=== PATIENT | female | born 1940 | race Caucasian/White ===

== ENCOUNTER 2022-06-16 00:31 | Inpatient (IN) | payer BC ==
[~2022-06-16] VITALS: Ht 167.6 cm; Wt 74.8 kg
[2022-06-16] MEDS ORDERED: IBUPROFEN 400 MG TABLET PO ONE (01:00)
[2022-06-16] MEDS ORDERED: IBUPROFEN 400 MG TABLET ONE (01:16)
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
--- NOTE | 2022-06-16 01:34 | NUR ---
PT BEING TRANSPORTED TO [facility]IA [facility]
[2022-06-16 05:24] LABS: BASOPHILS % (AUTO) 0.2 % (0.0-2.0); EOSINOPHILS % (AUTO) 0.2 % (0.0-6.0); HEMATOCRIT 39 % (33-45); HEMOGLOBIN 13.4 g/dL (11.5-14.8); LYMPHOCYTES # (AUTO) 1.2 K/uL (0.8-4.8); LYMPHOCYTES % (AUTO) 15.1 % (20.0-44.0); MEAN CORPUSCULAR HGB CONC 34 g/dl (31.0-36.0); MEAN CORPUSCULAR VOLUME 83 fL (82-100); MONOCYTES # (AUTO) 0.5 K/uL (0.1-1.30); NEUTROPHILS # (AUTO) 6.4 K/uL (1.8-8.9); NEUTROPHILS % (AUTO) 78.5 % (43.0-81.0); PLATELET COUNT (AUTO) 178 K/uL (150-450); RED BLOOD CELL COUNT(AUTO) 4.71 MIL/uL (4.0-5.2); WHITE BLOOD COUNT (AUTO) 8.1 K/uL (4.3-11.0)
--- NOTE | 2022-06-16 05:25 | NUR ---
DR NAILS ON THE PHONE WITH YARELIS COOPER NP
[2022-06-16 05:34] LABS: CARBON DIOXIDE 27 mmol/L (21-32); CHLORIDE 104 mmol/L (98-107); CREATININE 0.8 mg/dL (0.6-1.3); GLUCOSE 117 mg/dL (74-106); POTASSIUM 3.7 mmol/L (3.5-5.1); SODIUM SERUM 138 mmol/L (136-145); UREA NITROGEN, BLOOD 16 mg/dL (7-18)
--- NOTE | 2022-06-16 05:39 | NUR ---
20G IV ESTABLISHED AT . BLOOD DRAWN AND SENT TO LAB
[2022-06-16 05:40] LABS: ALANINE AMINOTRANSFERASE 25 U/L (12-78); ALBUMIN 3.7 g/dL (3.4-5.0); ALKALINE PHOSPHATASE 79 U/L (46-116); ASPARTATE AMINOTRANSFERASE 24 U/L (15-37); TOTAL PROTEIN, SERUM 7.1 g/dL (6.4-8.2)
--- NOTE | 2022-06-16 05:40 | NUR ---
ENOC COLLECTED AND SENT TO LAB
[2022-06-16] MEDS ORDERED: MAGNESIUM HYDROXIDE 30 ML UDC PO PRN (06:00)
[2022-06-16] MEDS ORDERED: Z GUARD REMEDY 4 OZ OINT TP PRN (06:00)
[2022-06-16] MEDS ORDERED: ONDANSETRON HCL/PF 4 MG/2 ML VIAL IVP PRN (06:00)
[2022-06-16] MEDS ORDERED: ACETAMINOPHEN 325 MG TABLET PO PRN (06:00)
--- NOTE | 2022-06-16 06:43 | NUR ---
PT SLEEPING COMFORTABLY IN BED REMAINS ON PULSE OX AND MONITOR. CALL LIGHT WITHIN REACH.
--- NOTE | 2022-06-16 07:40 | NUR ---
GOT BED 324-1
--- NOTE | 2022-06-16 07:55 | NUR ---
REPORT GIVEN TO SOPHIA FOR MODESTO
[2022-06-16] MEDS: PANTOPRAZOLE 40 MG TABLET.DR PO SCH (09:21)
[2022-06-16] MEDS: MORPHINE SULFATE INJ 2 MG/ML DISP.SYRIN IV PRN ×2 (09:22→10:26)
[2022-06-16 09:25] VITALS: BP 146/82
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
[2022-06-16] MEDS ORDERED: ASPI-1169 PO (09:29)
[2022-06-16] MEDS ORDERED: ATOR10TA PO (09:29)
[2022-06-16] MEDS ORDERED: LISI-768 PO (09:29)
[2022-06-16] MEDS ORDERED: HYDROCODONE/APAP 10/325MG TABLET PO PRN (11:00)
[2022-06-16 16:00] VITALS: BP 120/70
[2022-06-16] MEDS: ATORVASTATIN 10 MG TABLET PO SCH (18:19)
--- NOTE | 2022-06-16 19:34 | NUR ---
RN Closing Note Pt AOx4, able to express her own concerns. Patient complained about food quality and pillows. Provided as much assistance with comfort as possible. Made pt aware of POC, states she is not sure if she wants to continue with imaging test since she does not want to be exposed to radiation. Administered medications as ordered. Patient remained stable and safe throughout shift, provided care as needed and medications as ordered. All safety precautions taken throughout shift, call light and table within reach, bed at lowest position.
--- NOTE | 2022-06-16 19:40 | NUR ---
MS RN OPENING NOTE RECEIVED PT RESTING IN BED, VERBALLY RESPONSIVE. A/O X4 AND ABLE TO MAKE NEEDS KNOWN. PT STABLE ON ROOM AIR. NO SOB OR S/S OF RESPIRATORY DISTRESS. BREATHING EVEN AND UNLABORED. IV ACCESS R HAND 20 GAUGE, INTACT AND PATENT. SAFETY PRECAUTIONS IN PLACE. BED IN LOWEST LOCKED POSITION, HOB ELEVATED, SIDE RAILS UP X2, AND CALL LIGHT AND TABLE WITHIN REACH. ALL NEEDS MET AT THIS TIME.
[2022-06-16 20:00] VITALS: BP 154/84
[2022-06-16] MEDS: TEMAZEPAM 15 MG CAPSULE PO PRN (23:18)
--- NOTE | 2022-06-16 23:18 | NUR ---
RN NOTE PT COMPLAINED OF INSOMNIA. MANAGER VAN COOPER AWARE AND NEW ORDERS NOTED AND CARRIED OUT. ADMINISTERED RESTORIL 15 MG FOR INSOMNIA ORDERED. MADE COMFORTABLE IN BED. ALL NEEDS MET AT THIS TIME.
[2022-06-17 06:52] LABS: BILIRUBIN,URINE NEGATIVE (NEGATIVE); COLOR,URINE YELLOW (YELLOW); LEUKOCYTE ESTERASE ,URINE SMALL (NEGATIVE); NITRITE, URINE POSITIVE (NEGATIVE); PROTEIN,URINE NEGATIVE (NEGATIVE); UGLUCOSE NEGATIVE (NEGATIVE); UROBILINOGEN,URINE 0.2 EU/dL (0.2)
[2022-06-17 06:55] LABS: BACTERIA,URINE Many /HPF (None Seen); SQUAMOUS EPITHELIAL CELL,UR Few /HPF (None Seen); WBC,URINE 21-50 /HPF (0-3)
[2022-06-17 07:05] LABS: BASOPHILS % (AUTO) 0.3 % (0.0-2.0); EOSINOPHILS % (AUTO) 1.3 % (0.0-6.0); HEMATOCRIT 38 % (33-45); HEMOGLOBIN 13.2 g/dL (11.5-14.8); LYMPHOCYTES # (AUTO) 1.2 K/uL (0.8-4.8); LYMPHOCYTES % (AUTO) 16.8 % (20.0-44.0); MEAN CORPUSCULAR HGB CONC 34 g/dl (31.0-36.0); MEAN CORPUSCULAR VOLUME 84 fL (82-100); MONOCYTES # (AUTO) 0.7 K/uL (0.1-1.30); MONOCYTES % (AUTO) 9.2 % (2.0-12.0); NEUTROPHILS # (AUTO) 5.3 K/uL (1.8-8.9); NEUTROPHILS % (AUTO) 72.4 % (43.0-81.0); PLATELET COUNT (AUTO) 161 K/uL (150-450); RED BLOOD CELL COUNT(AUTO) 4.59 MIL/uL (4.0-5.2); WHITE BLOOD COUNT (AUTO) 7.3 K/uL (4.3-11.0)
[2022-06-17 07:28] LABS: CREATININE 0.7 mg/dL (0.6-1.3); PHOSPHORUS 3.3 mg/dL (2.5-4.9); POTASSIUM 3.6 mmol/L (3.5-5.1)
[2022-06-17] MEDS: PANTOPRAZOLE 40 MG TABLET.DR PO SCH (08:17)
[2022-06-17] MEDS: LISINOPRIL (5MG) 5 MG TABLET PO SCH (08:18)
--- NOTE | 2022-06-17 08:35 | NUR ---
pt. refused CT Scan of Pelvis. RN aware.
[2022-06-17 08:54] VITALS: BP 130/86
[2022-06-17] MEDS ORDERED: ACET325T53 PO (14:16)
[2022-06-17] MEDS ORDERED: HYDR-3980 PO (14:16)
[2022-06-17 16:21] VITALS: BP 116/54
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
[2022-06-17] MEDS: ATORVASTATIN 10 MG TABLET PO SCH (18:33)
--- NOTE | 2022-06-17 19:29 | NUR ---
MS RN OPENING NOTE RECEIVED PT AWAKE IN BED. A/O X4 AND ABLE TO MAKE NEEDS KNOWN. PT STABLE ON ROOM AIR. NO SOB OR S/S OF RESPIRATORY DISTRESS. BREATHING EVEN AND UNLABORED. IV ACCESS R HAND 20 GAUGE, INTACT AND PATENT. SAFETY PRECAUTIONS IN PLACE. BED IN LOWEST LOCKED POSITION, HOB ELEVATED, SIDE RAILS UP X2, AND CALL LIGHT AND TABLE WITHIN REACH. ALL NEEDS MET AT THIS TIME.
--- NOTE | 2022-06-17 19:41 | NUR ---
RN Closing Note PT AOx4, complains about food, bed sheets and pillows. Able to express her own concerns, states he is not in pain as long as she does not move. DVT compression device was ordered. Administered medications as prescribed, and provided care as needed. All safety precautions taken, call light and table within reach, bed at lowest position.
[2022-06-17 20:00] VITALS: BP 135/68
[2022-06-17] MEDS: TEMAZEPAM 15 MG CAPSULE PO PRN (20:50)
--- NOTE | 2022-06-17 20:50 | NUR ---
RN NOTE PT REQUESTED SOMETHING FOR INSOMNIA AND CONSTIPATION. ADMINISTERED MILK OF MAGNESIA FOR CONSTIPATION AND RESTORIL 15 MG FOR INSOMNIA. MADE COMFORTABLE IN BED. ALL NEEDS MET AT THIS TIME.
--- NOTE | 2022-06-18 07:06 | NUR ---
MS RN CLOSING NOTE PT AWAKE IN BED. A/O X4 AND ABLE TO MAKE NEEDS KNOWN. PT STABLE ON ROOM AIR. NO SOB OR S/S OF RESPIRATORY DISTRESS. BREATHING EVEN AND UNLABORED. IV ACCESS R HAND 20 GAUGE, INTACT AND PATENT. ALL DUE MEDS GIVEN ORDERED. KEPT CLEAN AND DRY. TURNED AND REPOSITIONED Q2H. SAFETY PRECAUTIONS IN PLACE AT ALL TIMES. BED IN LOWEST LOCKED POSITION, HOB ELEVATED, SIDE RAILS UP X2, AND CALL LIGHT AND TABLE WITHIN REACH. ALL NEEDS MET AT THIS TIME AND WILL ENDORSE TO ONCOMING NURSE FOR MODESTO.
--- NOTE | 2022-06-18 07:30 | NUR ---
MS RN OPENING NOTES RECEIVED PATIENT ON BED, AWAKE AND A/O X4. ON O2 AT 2LPM VIA NASAL CANNULA TOLERATING WELL. NO SOB NOTED. NOT IN DISTRESS. WITH NO COMPLAINTS OF PAIN OR DISCOMFORT AT THIS TIME. WITH IV ACCESS AT THE LEFT AC G20 SALINE LOCKED, PATENT AND INTACT. NO SIGNS OF IV INFILTRATION. SAFETY MEASURES IN PLACED. CALL LIGHT WITHIN REACH. BED ON LOWEST LOCKED POSITION, SIDE RAILS UP X2. WILL CONTINUE TO MONITOR.
[2022-06-18] MEDS: LISINOPRIL (5MG) 5 MG TABLET PO SCH (09:20)
[2022-06-18] MEDS: PANTOPRAZOLE 40 MG TABLET.DR PO SCH (09:21)
[2022-06-18] MEDS: BISACODYL SUPP (10 MG) 10 MG/SUPP.RECT SUPP.RECT RC PRN (10:27)
[2022-06-18] MEDS: APIXABAN 5 MG TABLET PO SCH ×2 (11:22→17:23)
[2022-06-18 16:34] VITALS: BP 126/52
[2022-06-18] MEDS: ATORVASTATIN 10 MG TABLET PO SCH ×2 (17:25→17:46)
--- NOTE | 2022-06-18 18:24 | NUR ---
MS RN CLOSING NOTES PATIENT ON BED, AWAKE AND A/O X4. ON O2 AT 2LPM VIA NASAL CANNULA TOLERATING WELL. NO SOB NOTED. NOT IN DISTRESS. WITH NO COMPLAINTS OF PAIN OR DISCOMFORT AT THIS TIME. WITH IV ACCESS AT THE LEFT AC G20 SALINE LOCKED, PATENT AND INTACT. NO SIGNS OF IV INFILTRATION. DUE MEDS GIVEN. SAFETY MEASURES IN PLACED. CALL LIGHT WITHIN REACH. BED ON LOWEST LOCKED POSITION, SIDE RAILS UP X2. WILL ENDORSE TO NEXT SHIFT FOR MODESTO.
[2022-06-18] MEDS: TEMAZEPAM 15 MG CAPSULE PO PRN (23:37)
--- NOTE | 2022-06-18 23:41 | NUR ---
DIFFICULTY SLEEP Patient request sleep medication, unable to sleep. Given Restoril, will monitor hours of sleep.
--- NOTE | 2022-06-19 06:27 | NUR ---
END OF SHIFT REPORT Patient is Alert Oriented x4. Stable Oxygenation on room air. Patient c/o pain only when moved, otherwise comfortable in bed. Refused to be turned and repositioned, education on skin injury prevention, patient verbalized understanding. Mood changes, irritable at times. Hours of sleep 5 with Restoril medication. Pending dc to SNF, awaiting bed available. Fall precaution maintained. Will endorse to oncoming RN.
[2022-06-19 09:00] VITALS: BP 98/78
[2022-06-19] MEDS: LISINOPRIL (5MG) 5 MG TABLET PO SCH (09:00)
[2022-06-19] MEDS: PANTOPRAZOLE 40 MG TABLET.DR PO SCH (09:27)
[2022-06-19] MEDS: APIXABAN 5 MG TABLET PO SCH (09:27)
[2022-06-19] MEDS ORDERED: APIX5TAB PO (12:18)
[2022-06-19] MEDS: BISACODYL SUPP (10 MG) 10 MG/SUPP.RECT SUPP.RECT RC PRN (14:37)
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
[2022-06-20] MEDS ORDERED: TRAM50TA2 PO (07:53)
[2022-06-20] MEDS ORDERED: ASPIRIN 81 MG TAB.CHEW PO SCH (09:00)
[2022-06-20] MEDS ORDERED: APIXABAN 5 MG TABLET PO SCH (09:00)
[2022-06-20] MEDS ORDERED: LISINOPRIL (5MG) 5 MG TABLET PO SCH (09:00)
[2022-06-20] MEDS ORDERED: ATORVASTATIN 10 MG TABLET PO SCH (22:00)
== END 2022-06-19 16:00 | DRG 536 ==
LOC: ER 00:47 → TRANSITION 07:36 → MED 07:42
PROVIDERS: ADMIT Nurse Practitioner Acute Care; ATTEND Nurse Practitioner Acute Care
PROC: 0HQEXZZ Repair Left Lower Arm Skin, External Approach (ICD-10-PCS; principal; 2022-06-16)
DX: S32.592A Other specified fracture of left pubis, initial encounter for closed fracture (principal); Y04.8XXA Assault by other bodily force, initial encounter; S00.03XA Contusion of scalp, initial encounter; S51.012A Laceration without foreign body of left elbow, initial encounter; Y93.89 Activity, other specified; Y92.480 Sidewalk as the place of occurrence of the external cause; Y99.8 Other external cause status; I10 Essential (primary) hypertension; E78.5 Hyperlipidemia, unspecified; Z96.643 Presence of artificial hip joint, bilateral; M19.90 Unspecified osteoarthritis, unspecified site; R40.2363 Coma scale, best motor response, obeys commands, at hospital admission; R40.2143 Coma scale, eyes open, spontaneous, at hospital admission; R40.2253 Coma scale, best verbal response, oriented, at hospital admission; Z20.822 Contact with and (suspected) exposure to COVID-19
CPT/HCPCS: 36415; 70450-TC; 70486-TC; 72125-TC; 73080-TC; 73502; 80048-TC; 80053-TC; 81001; 83735-TC; 84100-TC; 85025-TC; 87081-TC; 87086-TC; 87186-TC; 97112-TC; 97530-TC; C9803; G0378; J2270

== ENCOUNTER 2022-06-19 17:35 | Inpatient (IN) | payer BC ==
[~2022-06-19] VITALS: Ht 154.9 cm; Wt 73.5 kg
[2022-06-19] MEDS: NITROFURANTOIN/MONOHYDRATE MACROCRYSTALS 100 MG CAPSULE PO SCH (02:45)
[~2022-06-19 17:35] MED LIST: ACET325T53 PO; APIX5TAB PO; ASPI-1169 PO; ATOR10TA PO; HYDR-3980 PO; LISI-768 PO
--- NOTE | 2022-06-19 18:16 | NUR ---
pt refusing blood draw and ekg. dr andre aware.
--- NOTE | 2022-06-19 19:05 | NUR ---
PT'S DTR RODERICK AT BEDSIDE W/ PT. PT STILL REFUSING BLOOD DRAW AND TESTS TO BE DONE.
--- NOTE | 2022-06-19 19:09 | NUR ---
DR GARCIA AT BEDSIDE SPEAKING W/ PT AND PT'S DTR.
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
--- NOTE | 2022-06-19 19:30 | NUR ---
PT REFUSED TO HAVE HER BP AND VITALS CHECKED. I NEED TO CONVINCED HER THAT AN INCOMING NURSE, I NEED TO HAVE A BASELINE FOR MY ASSESSMENT AND VITALS SIGNS. SHE ALLOWED ME 1 TIME ONLY BUT REFUSED TO HAVE IT ON JUST FOR MONITORING.
--- NOTE | 2022-06-19 20:18 | NUR ---
FAMILY REQUESTING ICE PACK TO OCCIPITAL ARE[facility]
[2022-06-19 21:18] LABS: BASOPHILS % (AUTO) 0.2 % (0.0-2.0); EOSINOPHILS % (AUTO) 2.6 % (0.0-6.0); HEMATOCRIT 37 % (33-45); HEMOGLOBIN 12.5 g/dL (11.5-14.8); LYMPHOCYTES # (AUTO) 1.6 K/uL (0.8-4.8); MEAN CORPUSCULAR HGB CONC 34 g/dl (31.0-36.0); MEAN CORPUSCULAR VOLUME 84 fL (82-100); MONOCYTES # (AUTO) 0.6 K/uL (0.1-1.30); NEUTROPHILS # (AUTO) 5.1 K/uL (1.8-8.9); NEUTROPHILS % (AUTO) 68.2 % (43.0-81.0); PLATELET COUNT (AUTO) 194 K/uL (150-450); RED BLOOD CELL COUNT(AUTO) 4.45 MIL/uL (4.0-5.2); WHITE BLOOD COUNT (AUTO) 7.4 K/uL (4.3-11.0)
--- NOTE | 2022-06-19 21:30 | NUR ---
PATIENT PASSED OUT STOOL, PERINEAL CARE DONE
[2022-06-19 21:42] LABS: CREATININE 0.9 mg/dL (0.6-1.3); POTASSIUM 3.9 mmol/L (3.5-5.1)
--- NOTE | 2022-06-19 21:55 | NUR ---
[facility] PAGED
[2022-06-19] MEDS ORDERED: ACETAMINOPHEN ES 500 MG TABLET PO ONE (22:00)
--- NOTE | 2022-06-19 22:01 | NUR ---
PT REFUSE MEDS
--- NOTE | 2022-06-19 23:10 | NUR ---
PATIENT PASSED URINE, PERINEAL CARE DONE.
--- NOTE | 2022-06-19 23:14 | NUR ---
SEEN BY AIR TRAFFIC CONTROL OPERATOR COOPER AT BEDSIDE
--- NOTE | 2022-06-19 23:25 | NUR ---
ASSISTED PT TO BEDPAN BY EMT TO COLLECT URINE SAMPLE
--- NOTE | 2022-06-19 23:28 | NUR ---
URINE SPECIMEN SENT TO LAB
[2022-06-19] MEDS ORDERED: ACETAMINOPHEN 325 MG TABLET PO PRN (23:30)
[2022-06-19] MEDS ORDERED: MAG HYDROX/AL HYDROX/SIMETH 30 ML UDC PO PRN (23:30)
[2022-06-19] MEDS ORDERED: ONDANSETRON 4 MG TAB.RAPDIS SL PRN (23:30)
[2022-06-19] MEDS ORDERED: PHENAZOPYRIDINE HCL 200 MG TABLET PO ONE (23:30)
[2022-06-19] MEDS ORDERED: MAGNESIUM HYDROXIDE 30 ML UDC PO PRN (23:30)
[2022-06-19] MEDS ORDERED: Z GUARD REMEDY 4 OZ OINT TP PRN (23:30)
--- NOTE | 2022-06-20 02:31 | NUR ---
PT GOING TO 326-2
[2022-06-20] MEDS ORDERED: PHENAZOPYRIDINE HCL 200 MG TABLET ONE (02:33)
[2022-06-20] MEDS ORDERED: NITROFURANTOIN/MONOHYDRATE MACROCRYSTALS 100 MG CAPSULE ONE (02:33)
--- NOTE | 2022-06-20 02:40 | NUR ---
REPORT GIVEN TO CHRIS MIGUEL
--- NOTE | 2022-06-20 02:49 | NUR ---
PT WAS OFFERED 2 MEDICATION FOR UTI. SHE REFUSED THE PYRIDIUM BUT TOOK THE MACROBID.
[2022-06-20 02:55] VITALS: BP 143/73
--- NOTE | 2022-06-20 03:41 | NUR ---
GLASS BEVELLER NOTES; RECEIVED PATIETN FROM ER VIA GURNEY AWAKE TRANSFER TO ROOM 326-2, PLACED IN BED COMFORTABLY, NO COMPLAIN OF PAIN AND DISCOMFORT AT THIS TIME , ON ROOM AIR SATURATING WELL, PATIENT IS A/OX4 ABLE TO MAKE NEEDS KNOWN, SKIN ASSESSMENT DONE AND DOCUMENTED, INVENTORIES DONE NO INVENTORIES TURNOVER, PATIENT WAS PLACED COMFORTABLY TO BE, ORIENTED TO PLACE REMIND TO USE THE CALL LIGHTS WHEN NEEDED ASSISTANCE, PATIENT KEPT CLEAN AND DRY ALL NEEDS MET WILL CONTINUE TO MONITOR
--- NOTE | 2022-06-20 06:48 | NUR ---
MS RN CLOSING NOTES: 326-2 KYLIE MARRERO PATIENT SLEEP IN BED COMFORTABLY, NO COMPLAIN OF PAIN AND DISCOMFORT AT THIS TIME ON ROOM AIR SATURATING WELL,ON ROOMMAIR SATURATING WELL, NO SOB WAS OBSERVED, PATIENT KEPT CLEAN AND DRY ALL NEEDS MET ENDORSE TO INCOMING SHIFT.
--- NOTE | 2022-06-20 07:45 | NUR ---
MS RN OPENING NOTES: PT RECEIVED AWAKE, RESTING IN BED COMFORTABLY, A/OX4. ABLE TO MAKE NEEDS KNOWN. PT ON RA WITH NO S/S OF SOB AND ACUTE DISTRESS. PT C/O OF PAIN 2-12/10 BUT REFUSED PAIN MEDICATION AT THIS TIME. RN CARRIED OUT AM/ORAL CARE. NO IV ACCESS NOTED. ENDORSED BY PM RN, PT REFUSED IV PLACEMENT AT ER AND ON THE UNIT, PT UNDERSTANDS RATIONAL OF IV ACCESS BUT DECLINED ANYWAY. MADE PT COMFORTABLE, CLEAN AND DRY, SAFETY MEASURES IN PLACE, CALL LIGHT AND TABLE WITHIN REACH; WILL CONTINUE PLAN OF CARE THROUGHOUT SHIFT.
[2022-06-20] MEDS ORDERED: TRAM50TA2 PO (07:53)
[2022-06-20 08:39] VITALS: BP 143/76
[2022-06-20] MEDS: NITROFURANTOIN/MONOHYDRATE MACROCRYSTALS 100 MG CAPSULE PO SCH ×2 (08:58→16:27)
[2022-06-20] MEDS: PHENAZOPYRIDINE HCL 200 MG TABLET PO SCH ×3 (08:59→16:27)
[2022-06-20] MEDS: PANTOPRAZOLE 40 MG TABLET.DR PO SCH (08:59)
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
[2022-06-20 16:10] VITALS: BP 137/78
--- NOTE | 2022-06-20 18:52 | NUR ---
MS RN CLOSING NOTES: PT AWAKE, DAUGHTER AT BEDSIDE, RESTING IN BED COMFORTABLY, A/OX4. ABLE TO MAKE NEEDS KNOWN. PT ON RA WITH NO S/S OF SOB AND ACUTE DISTRESS. DENIES PAIN AT THIS TIME. NO IV ACCESS NOTED. ENDORSED BY PM RN, PT REFUSED IV PLACEMENT AT ER AND ON THE UNIT, PT UNDERSTANDS RATIONAL OF IV ACCESS BUT DECLINED ANYWAY. MADE PT COMFORTABLE, CLEAN AND DRY, SAFETY MEASURES IN PLACE, CALL LIGHT AND TABLE WITHIN REACH; WILL ENDORSE TO PM SHIFT.
--- NOTE | 2022-06-20 19:30 | NUR ---
MS RN OPENING NOTE RECEIVED PT AWAKE IN BED. A/OX4 AND ABLE TO MAKE NEEDS KNOWN. DAUGHTER AT BEDSIDE. PT STABLE ON ROOM AIR. NO SOB OR S/S OF RESPIRATORY DISTRESS. NO IV ACCESS PT IS REFUSING, MD AWARE. SAFETY PRECAUTIONS IN PLACE. BED IN LOWEST LOCKED POSITION, HOB ELEVATED, SIDE RAILS UP X3, AND CALL LIGHT AND TABLE WITHIN REACH. ALL NEEDS MET AT THIS TIME.
[2022-06-20 20:00] VITALS: BP 136/70
--- NOTE | 2022-06-21 06:43 | NUR ---
MS RN CLOSING NOTE PT AWAKE IN BED. A/OX4 AND ABLE TO MAKE NEEDS KNOWN. DAUGHTER AT BEDSIDE. PT STABLE ON ROOM AIR. NO SOB OR S/S OF RESPIRATORY DISTRESS. NO IV ACCESS PT IS REFUSING, MD AWARE. SAFETY PRECAUTIONS IN PLACE AT ALL TIMES. BED IN LOWEST LOCKED POSITION, HOB ELEVATED, SIDE RAILS UP X3, AND CALL LIGHT AND TABLE WITHIN REACH. ALL NEEDS MET AT THIS TIME AND WILL ENDORSE TO ONCOMING NURSE FOR MODESTO.
--- NOTE | 2022-06-21 07:30 | NUR ---
MS RN OPENING NOTES: RECEIVED POLISH SPEAKING PT, A/O X 4 AND ABLE TO VERBALIZED NEEDS. NO SOB OR CARDIAC DISTRESS NOTED, ON ROOM AIR AND TOLERATING WELL. REFUSED IV ACCESS. KEPT RESTED AND COMFORTABLE. SAFETY PRECAUTIONS MAINTAINED: BED IN LOWEST AND LOCKED POSITION, SIDE RAILS UP X 2 . CALL LIGHT IN EASY REACH FOR HELP OR ASSISTANCE, WILL MONITOR ACCORDINGLY.
[2022-06-21] MEDS: PANTOPRAZOLE 40 MG TABLET.DR PO SCH (07:52)
[2022-06-21 08:00] VITALS: BP 137/97
[2022-06-21] MEDS: NITROFURANTOIN/MONOHYDRATE MACROCRYSTALS 100 MG CAPSULE PO SCH ×2 (08:21→16:52)
[2022-06-21] MEDS: PHENAZOPYRIDINE HCL 200 MG TABLET PO SCH ×3 (08:22→16:56)
[2022-06-21] MEDS ORDERED: ACETAMINOPHEN 325 MG TABLET PO PRN (13:00)
[2022-06-21] MEDS ORDERED: TRAMADOL HCL 50 MG TABLET PO PRN (13:00)
[2022-06-21] MEDS ORDERED: HYDROCODONE/APAP 10/325MG TABLET PO PRN (13:00)
[2022-06-21 16:00] VITALS: BP 121/69
[2022-06-21] MEDS: APIXABAN 5 MG TABLET PO SCH (16:55)
[2022-06-21] MEDS: ATORVASTATIN 10 MG TABLET PO SCH (17:08)
--- NOTE | 2022-06-21 18:46 | NUR ---
MS RN CLOSING NOTES: PATIENT AWAKE, ALERT AND ORIENTED X 4 PARAGUAYAN SPEAKING FLUENT IN KYRGYZ. NO SOB OR CARDIAC DISTRESS NOTED, DENIES PAIN AT THIS TIME. PATIENT REFUSED IV ACCESS. KEPT RESTED AND COMFORTABLE. SAFETY PRECAUTIONS MAINTAINED: BED LOWEST AND LOCKED POSITION, SIDE RAILS UP X 2. CALL LIGHT IN EASY REACH. ENDORSED TO LAYBOY OPERATOR FOR CONTINUITY OF CARE.
[2022-06-21 19:02] VITALS: BP 121/69
--- NOTE | 2022-06-21 19:30 | NUR ---
noc rn opening note received patient in bed, alert and oriented x4, 1 family member at bedside. no s/s of apparent distress on room air. per patient pain tolerable at this time, managed with ice pack. no iv access in place as endorsed that patient refused it. safety in place. re-oriented and encouraged with the use of call light. will monitor and cont. with the plan of care for patient.
[2022-06-21 20:00] VITALS: BP 123/85
--- NOTE | 2022-06-22 07:15 | NUR ---
MS RN OPENING NOTES: RECEIVED ON BED AWAKE AND VERBALLY RESPONSIVE , KOREAN SPEAKING PT, A/O X 4 AND ABLE TO VERBALIZED NEEDS. NO SOB OR CARDIAC DISTRESS NOTED, ON ROOM AIR AND TOLERATING WELL. NO IV ACCESS. KEPT RESTED AND COMFORTABLE. SAFETY PRECAUTIONS MAINTAINED: BED IN LOWEST AND LOCKED POSITION, SIDE RAILS UP X 2 . CALL LIGHT IN EASY REACH FOR HELP OR ASSISTANCE, WILL MONITOR ACCORDINGLY.
--- NOTE | 2022-06-22 07:20 | NUR ---
rn closing note needs attended. no significant change on my shift. will endorse to morning shift rn for continuity of patient care.
[2022-06-22 08:00] VITALS: BP 138/89
[2022-06-22] MEDS: PANTOPRAZOLE 40 MG TABLET.DR PO SCH (08:16)
[2022-06-22] MEDS: PHENAZOPYRIDINE HCL 200 MG TABLET PO SCH ×3 (08:36→12:39)
[2022-06-22] MEDS: ASPIRIN 81 MG TAB.CHEW PO SCH ×2 (08:37→08:47)
[2022-06-22] MEDS: LISINOPRIL (5MG) 5 MG TABLET PO SCH (08:37)
[2022-06-22] MEDS: NITROFURANTOIN/MONOHYDRATE MACROCRYSTALS 100 MG CAPSULE PO SCH (08:37)
[2022-06-22] MEDS: APIXABAN 5 MG TABLET PO SCH ×2 (08:39→17:31)
--- NOTE | 2022-06-22 08:49 | NUR ---
RN NOTES PATIENT REFUSED ASPIRIN OFFERED 3X AND EXPLAINED RISK AND CONSEQUENCE OF NOT TAKING THE MEDICATION AND STILL REFUSING
--- NOTE | 2022-06-22 09:00 | NUR ---
RN NOTES PATIENT REFUSED PYRIDIUM , PATIENT SAID THAT SHE DOESNT HAVE ANY APIN WHEN URINATING
--- NOTE | 2022-06-22 12:41 | NUR ---
RN NOTE PATIENT CLAIMED THE SHE DOESNT HAVE ANY PAIN WHEN URINATING AND SHE REFUSED THE PYRIDIUM , MD DR JAI PATEL AWARE AND WAITING TO CALL BACK
[2022-06-22 16:04] VITALS: BP 117/72
[2022-06-22] MEDS: ATORVASTATIN 10 MG TABLET PO SCH (17:30)
--- NOTE | 2022-06-22 19:30 | NUR ---
MS RN CLOSING NOTES: PATIENT ON BED AWAKE AND VERBALLY RESPONSIVE , SERBIAN SPEAKING PT, A/O X 4 AND ABLE TO VERBALIZED NEEDS. NO SOB OR CARDIAC DISTRESS NOTED, ON ROOM AIR AND TOLERATING WELL. NO C/O OF PAIN AND DISCOMFORT , ALL DUE MEDS GIVEN ORDERED , PO ATB AND PYRIDIUM WERE D/C DUE TO NO S/S OF UTI . NO IV ACCESS. KEPT RESTED AND COMFORTABLE. FOR D/C PLANNING AND STILL WAITING FOR PLACEMENT IN SNIF . SAFETY PRECAUTIONS MAINTAINED: BED IN LOWEST AND LOCKED POSITION, SIDE RAILS UP X 2 . CALL LIGHT IN EASY REACH FOR HELP OR ASSISTANCE, ENDORSED TO NEXT SHIFT .
--- NOTE | 2022-06-22 19:31 | NUR ---
noc rn opening note received patient in bed, alert and oriented x4, 1 family member at bedside. no s/s of apparent distress on room air. per patient pain tolerable at this time and not wanting pain medication. no iv access in place as endorsed that patient refused it. safety in place. re-oriented and encouraged with the use of call light. will monitor and cont. with the plan of care for patient.
[2022-06-22 20:00] VITALS: BP 91/56
--- NOTE | 2022-06-23 06:31 | NUR ---
RN CLOSING NOTE PT IN BED RESTING COMFORTABLY. A/OX4. CAN MAKE NEEDS KNOWN. NO C/O OF PAIN AT THIS TIME. NO SIGNS OF RESPIRATORY DISTRESS OR SOB AT THIS TIME. PT REFUSED IV ACCESS. ALL SCHEDULED MEDS GIVEN, ALL NEEDS ATTENDED TO. SAFETY CHECKS IN PLACE: BED LOCKED, BED IN LOWEST POSITION, CALL LIGHT WITHIN REACH, SIDE RAILS X2. WILL ENDORSE TO DAY SHIFT NURSE FOR MODESTO.
--- NOTE | 2022-06-23 07:35 | NUR ---
MS RN OPENING NOTES: PT RECEIVED AWAKE, RESTING IN BED COMFORTABLY, A/OX4. ABLE TO MAKE NEEDS KNOWN. PT ON RA WITH NO S/S OF SOB AND ACUTE DISTRESS.DENIES PAIN AT THIS TIME. ENDORSED BY PM RN, PT REFUSED IV PLACEMENT AT ER AND ON THE UNIT, PT UNDERSTANDS RATIONAL OF IV ACCESS BUT DECLINED ANYWAY. MADE PT COMFORTABLE, CLEAN AND DRY, SAFETY MEASURES IN PLACE, CALL LIGHT AND TABLE WITHIN REACH; WILL CONTINUE PLAN OF CARE THROUGHOUT SHIFT.
[2022-06-23 08:00] VITALS: BP 144/88
[2022-06-23] MEDS: PANTOPRAZOLE 40 MG TABLET.DR PO SCH (08:43)
[2022-06-23] MEDS: ASPIRIN 81 MG TAB.CHEW PO SCH (08:43)
[2022-06-23] MEDS: APIXABAN 5 MG TABLET PO SCH ×2 (08:44→16:54)
[2022-06-23] MEDS: LISINOPRIL (5MG) 5 MG TABLET PO SCH (08:45)
[2022-06-23 16:14] VITALS: BP 113/61
[2022-06-23] MEDS: ATORVASTATIN 10 MG TABLET PO SCH (17:41)
--- NOTE | 2022-06-23 18:48 | NUR ---
MS RN CLOSING NOTES: PT AWAKE, RESTING IN BED COMFORTABLY, A/OX4. ABLE TO MAKE NEEDS KNOWN. PT ON RA WITH NO S/S OF SOB AND ACUTE DISTRESS. DENIES PAIN AT THIS TIME. ENDORSED BY PM RN, PT REFUSED IV PLACEMENT AT ER AND ON THE UNIT, PT UNDERSTANDS RATIONAL OF IV ACCESS BUT DECLINED ANYWAY. MADE PT COMFORTABLE, CLEAN AND DRY, SAFETY MEASURES IN PLACE, CALL LIGHT AND TABLE WITHIN REACH; DUE MEDS GIVEN, WILL ENDORSE TO PM SHIFT.
[2022-06-23 20:00] VITALS: BP 122/66
--- NOTE | 2022-06-23 20:14 | NUR ---
MS RN OPENING NOTES; RECEIVED PATIENT AWAKE IN BED, BED IN LOW POSITION, CALL LIGHTS WITHIN REACH, NO COMPLAIN OF PAIN AND DISCOMFORT AT THIS TIME ON ROOM AIR SATURATING WELL, NO SOB WAS OBSERVED, PATIENT REFUSED IV LINE, ON BED REST PATIENT IS PENDING PLACEMENT TO [facility], KEPT CLEAN AND DRY ALL NEEDS MET WILL CONTINUE TO MONITOR.
--- NOTE | 2022-06-24 06:46 | NUR ---
MS RN CLOSING NOTES: PATIENT SLEEP IN BED COMFORTABLY, AROUSABLE TO VERBAL STIMULI, BED IN LOW POSITION CALL LIGHTS WITHIN REACH, NO COMP,ISAIAH OF PAIN AND DISCOMFORT AT THIS TIME,ON ROOM AIR SATURATING WELL, NO SOB WAS OBSERVED, PATIENT IS A/OX4 ABLE TO MAKE NEEDS KNOWN, NO IV LINE PATIENT REFUSED IV INSERTION, PATIENT KEPT CLEAN AND DRY ALL NEEDS MET ENDORSE TO INCOMING SHIFT.
--- NOTE | 2022-06-24 07:25 | NUR ---
MS RN OPENING NOTES: PT ASLEEP, EASILY ROUSED, A/OX4. ABLE TO MAKE NEEDS KNOWN. PT ON RA WITH NO S/S OF SOB AND ACUTE DISTRESS. DENIES PAIN AT THIS TIME. ENDORSED BY PM RN, PT REFUSED IV PLACEMENT AT ER AND ON THE UNIT, PT UNDERSTANDS RATIONAL OF IV ACCESS BUT DECLINED ANYWAY. SAFETY MEASURES IN PLACE, CALL LIGHT AND TABLE WITHIN REACH; WILL CARRY OUT PLAN OF CARE THROUGHOUT SHIFT.
[2022-06-24 08:00] VITALS: BP 124/80
[2022-06-24] MEDS: ASPIRIN 81 MG TAB.CHEW PO SCH (08:53)
[2022-06-24] MEDS: LISINOPRIL (5MG) 5 MG TABLET PO SCH (08:53)
[2022-06-24] MEDS: APIXABAN 5 MG TABLET PO SCH ×2 (08:55→17:07)
[2022-06-24] MEDS: PANTOPRAZOLE 40 MG TABLET.DR PO SCH (08:58)
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
[2022-06-24] MEDS: ATORVASTATIN 10 MG TABLET PO SCH (17:06)
--- NOTE | 2022-06-24 18:46 | NUR ---
MS RN CLOSING NOTES: PT AWAKE, RESTING IN BED COMFORTABLY, A/OX4. ABLE TO MAKE NEEDS KNOWN. DAUGHTER AT BEDSIDE. PT ON RA WITH NO S/S OF SOB AND ACUTE DISTRESS. DENIES PAIN AT THIS TIME. ENDORSED BY PM RN, PT REFUSED IV PLACEMENT AT ER AND ON THE UNIT, PT UNDERSTANDS RATIONAL OF IV ACCESS BUT DECLINED ANYWAY. MADE PT COMFORTABLE, CLEAN AND DRY, SAFETY MEASURES IN PLACE, CALL LIGHT AND TABLE WITHIN REACH; DUE MEDS GIVEN, WILL ENDORSE TO PM SHIFT.
[2022-06-24 20:00] VITALS: BP 131/77
--- NOTE | 2022-06-24 20:44 | NUR ---
MS RN OPENING NOTES: RECEIVED PATIENT SLEEP IN BED, AROUSABLE TO VERBAL STIMULI, ACCOMPANIED BY DAUGHTER, BED IN LOW POSITION CALL LIGHTS WITHIN REACH, NO COMPLAIN OF PAIN AND DISCOMFORT AT THIS TIME, ON ROOM AIR SATURATING WELL, PATIENT IS A/OX4 ABLE TO MAKE NEEDS KNOWN, NO IV LINE PATIENT REFUSED TO BE RE INSERTED, PATIENT DUE FOR D/C AWAITING FOR SNF ACCOMMODATION , WILL CONTINUE TO MONITOR
--- NOTE | 2022-06-25 06:10 | NUR ---
RN CLOSING NOTES: PATIENT SLEEP IN BED COMFORTABLY, AROUSABLE TO VERBAL STIMULI, BED IN LOW POSITION CALL LIGHTS WITHIN REACH, NO COMPLAIN OF PAIN AND DISCOMFORT AT THIS TIME, ON ROOM AIR SATURATING WELL, NO SOB WAS OBSERVED, PATIENT IS A/OX4 ABLE TO MAKE NEEDS KNOWN, NO IV LINE , PATIENT REFUSED, PATIENT KEPT CLEAN AND DRY ALL NEEDS MET ENDORSE TO INCOMING SHIFT.
[2022-06-25 08:21] VITALS: BP 120/86
[2022-06-25] MEDS: ASPIRIN 81 MG TAB.CHEW PO SCH (09:10)
[2022-06-25] MEDS: PANTOPRAZOLE 40 MG TABLET.DR PO SCH (09:11)
[2022-06-25] MEDS: LISINOPRIL (5MG) 5 MG TABLET PO SCH (09:11)
[2022-06-25] MEDS: APIXABAN 5 MG TABLET PO SCH ×2 (09:12→17:44)
[2022-06-25 16:18] VITALS: BP 106/73
[2022-06-25] MEDS: ATORVASTATIN 10 MG TABLET PO SCH (17:43)
--- NOTE | 2022-06-25 18:46 | NUR ---
RN CLOSING NOTE PATIENT RECEIVED IN BED AND SLEEPING. REMAINS A/OX4 AND ABLE TO VERBALIZE ALL NEEDS. PATIENT REMAINS ON ROOM AIR WITH NO S/SX OF RESPIRATORY DISTRESS. DENIED PAIN THROUGHOUT SHIFT. ENDORSED BY CASE MANAGEMENT, PATIENT TRANSFER TO [facility] DENIED. PATIENT AND DAUGHTER AWARE. CONTINUES TO REFUSE IV ACCESS. TOLERATED ALL MEDICATIONS AND CARE WELL. PATIENT REMAINED COMFORTABLE AND KEPT CLEAN AND DRY. SAFETY MEASURES REMAIN IN PLACE WITH BED LOW AND LOCKED. SIDE-RAIL UPX2 WITH CALL LIGHT, PHONE AND TABLE WITHIN REACH. WILL CONT TO MONITOR.
[2022-06-25 20:00] VITALS: BP 129/78
--- NOTE | 2022-06-25 20:00 | NUR ---
MS RN OPENING NOTE RECEIVED PATIENT AWAKE IN BED WITH DAUGHTER AT BEDSIDE, ALERT/ORIENTED X 4, PT ABLE TO MAKE NEEDS KNOWN. PATIENT STABLE ON RA, NO S/S OF DISTRESS OR SOB NOTED, BREATHING EVEN AND UNLABORED. NO IV ACCESS NOTED, PER DAYSHIFT RN PATIENT CONTINUES TO REFUSE IV ACCESS. SAFETY MEASURES IN PLACE: CALL LIGHT WITHIN REACH, SIDE RAILS UP X 2, BED LOCKED IN LOWEST POSITION, BED ALARM ON. WILL CONTINUE TO MONITOR PATIENT
[2022-06-25] MEDS ORDERED: TRAZODONE 50 MG TABLET PO PRN (22:30)
--- NOTE | 2022-06-25 22:34 | NUR ---
MS RN NOTE PATIENT C/O INSOMNIA AND NOT BEING ABLE TO SLEEP. PATIENT REQUESTING MELATONIN BUT NOT AVAILABLE ON OMNICELL PER CHARGE NURSE. NOTIFIED ORGANIZATIONAL DEVELOPMENT DIRECTOR MD WITH ORDER FOR TRAZODONE 100 MG HS PRN
--- NOTE | 2022-06-26 07:20 | NUR ---
MS RN CLOSING NOTE PATIENT AWAKE IN BED, ALERT/ORIENTED X 4, PT ABLE TO MAKE NEEDS KNOWN. NO SIGNIFICANT CHANGES THROUGHOUT SHIFT. PATIENT STABLE ON RA, NO S/S OF DISTRESS OR SOB NOTED, BREATHING EVEN AND UNLABORED. NO IV ACCESS. PATIENT REQUESTED SLEEPING AID LAST NIGHT BUT WHEN OFFERED TRAZODONE, PATIENT REFUSED AND STATED SHE WAS GOING TO TRY TO SLEEP WITHOUT IT. SAFETY MEASURES IN PLACE: CALL LIGHT WITHIN REACH, SIDE RAILS UP X 2, BED LOCKED IN LOWEST POSITION, BED ALARM ON. ENDORSED TO DAY SHIFT NURSE FOR CONTINUITY OF CARE
--- NOTE | 2022-06-26 07:30 | NUR ---
RN MS NOTES PT IN BED, AWAKE, ALERT AND ORIENTED, NO COMPLAINT AT THIS TIME, BREATHING PATTERN NORMAL, ASSISTED WITH TOILETING NEEDS, CALL LIGHT WITHIN REACH, REFUSES IV INSERTION, NEEDS ATTENDED.
[2022-06-26 08:00] VITALS: BP 137/68
[2022-06-26] MEDS: LISINOPRIL (5MG) 5 MG TABLET PO SCH (08:48)
[2022-06-26] MEDS: PANTOPRAZOLE 40 MG TABLET.DR PO SCH (08:48)
[2022-06-26] MEDS: ASPIRIN 81 MG TAB.CHEW PO SCH (08:49)
[2022-06-26] MEDS: APIXABAN 5 MG TABLET PO SCH ×2 (08:50→16:06)
[2022-06-26 16:00] VITALS: BP 105/50
[2022-06-26] MEDS: ATORVASTATIN 10 MG TABLET PO SCH ×2 (17:40→17:49)
--- NOTE | 2022-06-26 18:47 | NUR ---
RN CLOSING NOTE PATIENT AWAKE IN BED, ALERT/ORIENTED X 4, PT ABLE TO MAKE NEEDS KNOWN. NO SIGNIFICANT CHANGES THROUGHOUT SHIFT. PATIENT STABLE ON RA, NO S/S OF DISTRESS OR SOB NOTED, BREATHING EVEN AND UNLABORED. NO IV ACCESS. PATIENT REFUSED 1800 MEDICATION. ABLE TO AMBULATE TO BR WITH WALKER. SAFETY MEASURES IN PLACE: CALL LIGHT WITHIN REACH, SIDE RAILS UP X 2, BED LOCKED IN LOWEST POSITION, BED ALARM ON. WILL ENDORSE TO CATERPILLAR DRIVER NURSE FOR CONTINUITY OF CARE.
--- NOTE | 2022-06-26 19:45 | NUR ---
MS RN NOTES RECEIVED ON BED A/O X4,SPEAK TRINIDADIAN,BREATHING REGULAR,NOT IN ANY FORM DISTRESS,NO IV ACCESS,PATIENT REFUSED PER REPORT,MD AWARE.PAIN TOLERABLE AT THE MOMENT,FALL RISK,BED ON LOWEST POSITION AND LOCKED,BED ALARM,CALL LIGHT IN REACH,NEEDS ANTICIPATED.
[2022-06-26 20:00] VITALS: BP 107/54
--- NOTE | 2022-06-27 05:30 | NUR ---
MS RN NOTES APPEARS UPSET WITH SAP MANAGER,ENCOURAGED TO CALM TO KEEP HER BLOOD PRESSURE WITH IN NORMAL LIMITS.NO DISTRESS.
--- NOTE | 2022-06-27 06:44 | NUR ---
MS RN NOTES CALM AND QUIET ON BED,WATCHING MOVIE ON HER IPOD,NO IV ACCESS,PT STILL REFUSING SALINE LOCK.ASSIST WITH ADL'S,,ASSIST WITH ORAL CARE.KEPT COMFORTABLE ON BED.
--- NOTE | 2022-06-27 07:28 | NUR ---
RN OPENING NOTES RECEIVED PATIENT IN BED AWAKE, A/O X4, VERBALLY RESPONSIVE. NO SIGNS OF ACUTE DISTRESS NOTED. ON ROOM AIR, TOLERATING WELL. NO SOB NOTED, BREATHING EVEN AND UNLABORED. DENIES ANY PAIN AT THIS TIME. NO IV ACCESS. SAFETY MEASURE IN PLACE. BED IN LOWEST AND LOCKED POSITION, SIDE RAILS UP X2, CALL LIGHT PLACED WITHIN EASY REACH WILL CONTINUE TO MONITOR PATIENT.
[2022-06-27 08:00] VITALS: BP 131/75
[2022-06-27] MEDS: APIXABAN 5 MG TABLET PO SCH ×2 (08:41→17:04)
[2022-06-27] MEDS: ASPIRIN 81 MG TAB.CHEW PO SCH (08:44)
[2022-06-27] MEDS: PANTOPRAZOLE 40 MG TABLET.DR PO SCH (08:44)
[2022-06-27] MEDS: LISINOPRIL (5MG) 5 MG TABLET PO SCH (08:44)
[2022-06-27 16:00] VITALS: BP 138/75
[2022-06-27] MEDS: ATORVASTATIN 10 MG TABLET PO SCH (17:04)
--- NOTE | 2022-06-27 18:53 | NUR ---
RN CLOSING NOTES PATIENT IN BED AWAKE, A/O X4, VERBALLY RESPONSIVE. NO SIGNS OF ACUTE DISTRESS NOTED. FAMILY AT BEDSIDE. REMAINS STABLE ON ROOM AIR, NO SOB NOTED, BREATHING EVEN AND UNLABORED. NO C/O PAIN AT THIS TIME. NO IV ACCESS. ALL DUE MEDS GIVEN, TOLERATED WELL. ASSISTED TO BSC NEEDED, ABLE TO AMBULATE WITH FWW, STANDBY ASSIST. SAFETY MEASURE MAINTAINED. BED IN LOWEST AND LOCKED POSITION, SIDE RAILS UP X2, CALL LIGHT PLACED WITHIN EASY REACH WILL ENDORSE TO NEXT SHIFT FOR CONTINUITY OF CARE.
--- NOTE | 2022-06-27 19:30 | NUR ---
MS RN OPENING NOTES RECEIVED PATIENT LYING IN BED AWAKE, FAMILY ON BEDSIDE. A/O X4, ABLE TO VERBALIZE NEEDS. BREATHING EVEN AND NON-LABORED ON ROOM AIR. NOT IN APPARENT DISTRESS. NO C/O PAIN OR DISCOMFORT AT THIS TIME. NO IV ACCESS, REFUSED PER REPORT. SAFETY MEASURES IN PLACED: BED IN LOWEST AND LOCKED POSITION, SIDE RAILS UP X2, CALL LIGHT PLACED WITHIN EASY REACH. WILL CONTINUE POC.
--- NOTE | 2022-06-28 07:11 | NUR ---
MS RN CLOSING NOTES PATIENT LYING IN BED ASLEEP, EASY TO AROUSE. A/O X4. NO SOB OR NOTED, TOLERATING ROOM AIR WELL. NO ACUTE DISTRESS NOTED. DENIES PAIN OR DISCOMFORT. NO IV ACCESS, REFUSED PER REPORT. ALL NEEDS ATTENDED. STILL AWAITING PLACEMENT. SAFETY MEASURES MAINTAINED: BED IN LOWEST AND LOCKED POSITION, SIDE RAILS UP X2, CALL LIGHT PLACED WITHIN EASY REACH. WILL ENDORSE FOR [place].
--- NOTE | 2022-06-28 07:30 | NUR ---
RN OPENING NOTE PATIENT RECEIVED IN BED AND SLEEPING. A/OX4 AND ABLE TO VERBALIZE ALL NEEDS. PATIENT REMAINS ON ROOM AIR WITH NO S/SX OF RESPIRATORY DISTRESS. NO S/SX OF PAIN OBSERVED UPON ASSESSMENT. SAFETY MEASURES IN PLACE WITH BED LOW AND LOCKED. CALL LIGHT WITHIN REACH. WILL CONT TO MONITOR.
[2022-06-28] MEDS: APIXABAN 5 MG TABLET PO SCH ×2 (09:28→18:08)
[2022-06-28] MEDS: ASPIRIN 81 MG TAB.CHEW PO SCH (09:29)
[2022-06-28] MEDS: PANTOPRAZOLE 40 MG TABLET.DR PO SCH (09:30)
[2022-06-28] MEDS: LISINOPRIL (5MG) 5 MG TABLET PO SCH (09:33)
[2022-06-28] MEDS: ATORVASTATIN 10 MG TABLET PO SCH (18:06)
--- NOTE | 2022-06-28 18:39 | NUR ---
RN CLOSING NOTE PATIENT RECEIVED IN BED AND SLEEPING. REMAINS A/OX4 AND ABLE TO VERBALIZE ALL NEEDS. PATIENT REMAINS ON ROOM AIR WITH NO S/SX OF RESPIRATORY DISTRESS. DENIED PAIN THROUGHOUT SHIFT. PATIENT OBSERVED WALKING TO/FROM BATHROOM WITH FWW ASSIST. ALSO OBSERVED WORKING WITH PT. CONTINUES TO REFUSE IV ACCESS. TOLERATED ALL MEDICATIONS AND CARE WELL. PATIENT REMAINED COMFORTABLE AND KEPT CLEAN AND DRY. SAFETY MEASURES REMAIN IN PLACE WITH BED LOW AND LOCKED. SIDE-RAIL UPX2 WITH CALL LIGHT, PHONE AND TABLE WITHIN REACH. WILL CONT TO MONITOR.
--- NOTE | 2022-06-28 19:45 | NUR ---
RN OPENING NOTE; PATIENT RECEIVED IN BED AA/OX4 AND ABLE TO VERBALIZE NEEDS.CORONA WELL ON RM AIR NO SIGN SOB/DISTRESS NOTED,NO COMPLAINE OF PAIN/DISCOMFORT AT THIS TIME,SAFETY MEASURES INPLACE,CALL LIGHT WITHIN REACH,WILL CONTINUE TO MONITOR.
[2022-06-28 20:00] VITALS: BP 126/76
--- NOTE | 2022-06-29 06:32 | NUR ---
MS RN CLOSING NOTES; PATIENT LYING IN BED AWAKE. A/O X4, ABLE TO VERBALIZE NEEDS. ON AT 2LPM VIA NC CORONA WELL,NO SOB/DISTRESS NOTED,NO COMPLAINE OF PAIN/DISCOMFORT DURING SHIFT,DUE MEDS GIVEN ORDER,ALL NEEDS ATTENDED,S/P LAPS LULU,DRESSING INTACT NO SIGN BLEEDING NOTED, IV ACCESS RAC #20G PATENT AND INTACT,SAFETY MEASURES IN PLACED: BED IN LOWEST AND LOCKED POSITION, SIDE RAILS UP X2, CALL LIGHT PLACED WITHIN EASY REACH. WILL ENDORSED TO NEXT SHIFT. Addendum: 06/29/22 at 0635 by FRANCK COOPER RN RN CLOSING NOTE;326 PATIENT IN BED AA/OX4 AND ABLE TO VERBALIZE NEEDS.CORONA WELL ON RM AIR NO SIGN SOB/DISTRESS NOTED,NO COMPLAINE OF PAIN/DISCOMFORT DURING SHIFT,DUE MEDS GIVEN ORDER,ALL NEEDS ATTENDED,KEPT PT CLEAN AND DRY AT ALL TIME,,SAFETY MEASURES INPLACE,CALL LIGHT WITHIN REACH,WILL ENDORSED TO NEXT SHIFT.
[2022-06-29 08:00] VITALS: BP 114/70
[2022-06-29] MEDS: LISINOPRIL (5MG) 5 MG TABLET PO SCH (08:39)
[2022-06-29] MEDS: PANTOPRAZOLE 40 MG TABLET.DR PO SCH (08:39)
[2022-06-29] MEDS: ASPIRIN 81 MG TAB.CHEW PO SCH (08:39)
[2022-06-29] MEDS: APIXABAN 5 MG TABLET PO SCH ×2 (08:41→17:37)
[2022-06-29 16:00] VITALS: BP 150/63
[2022-06-29] MEDS: ATORVASTATIN 10 MG TABLET PO SCH (17:36)
--- NOTE | 2022-06-29 17:53 | NUR ---
RN CLOSING NOTE PATIENT RECEIVED IN BED AND SLEEPING. REMAINS A/OX4 AND ABLE TO VERBALIZE ALL NEEDS. PATIENT CONTINUES ON ROOM AIR WITH NO S/SX OF RESPIRATORY DISTRESS. PATIENT DENIED PAIN THROUGHOUT SHIFT. OBSERVED WALKING TO/FROM BATHROOM WITH FWW ASSIST. ALSO OBSERVED WORKING WITH PT AND WALKING THROUGHOUT UNIT WITH CONTINUOUS ASSIST OF FWW. CONTINUES TO REFUSE IV ACCESS. TOLERATED ALL MEDICATIONS AND CARE WELL. PATIENT REMAINED COMFORTABLE AND KEPT CLEAN AND DRY. SAFETY MEASURES REMAIN IN PLACE WITH BED LOW AND LOCKED. SIDE-RAIL UPX2 WITH CALL LIGHT, PHONE AND TABLE WITHIN REACH. WILL CONT TO MONITOR.
[2022-06-29 20:00] VITALS: BP 117/70
--- NOTE | 2022-06-29 20:12 | NUR ---
MS RN NOTES RECEIVED ON BED A/O X4,WATCHING DRAMA SERIES ON HER PERSONAL IPOD.NO COMPLAINTS AT THE MOMENT,JUST MAKE HER ROOM TEMPERATURE A LITTLE BIT WARM.ASSIST WITH ADL'S,FALL RISK,BED ON LOWEST POSITION AND LOCKED.CALL LIGHT IN REACH,NEEDS ANTICIPATED.
--- NOTE | 2022-06-30 07:01 | NUR ---
MS RN NOTES \NO SIGNIFICANT CHANGE IN STATUS,ASSIST WITH ADL'S.WAITING FOR PLACEMENT PER CASE MANAGEMENT.CALL LIGHT IN REACH,NEEDS ATTENDED.
--- NOTE | 2022-06-30 07:26 | NUR ---
RN OPENING NOTES RECEIVED PATIENT SITTING IN BED AWAKE, A/O X4, VERBALLY RESPONSIVE. NO SIGNS OF ACUTE DISTRESS NOTED. ON ROOM AIR, TOLERATING WELL. NO SOB NOTED, BREATHING EVEN AND UNLABORED. DENIES ANY PAIN AT THIS TIME. NO IV ACCESS. SAFETY MEASURE IN PLACE. BED IN LOWEST AND LOCKED POSITION, SIDE RAILS UP X2, CALL LIGHT PLACED WITHIN EASY REACH WILL CONTINUE TO MONITOR PATIENT.
[2022-06-30 08:00] VITALS: BP 136/103
[2022-06-30] MEDS: PANTOPRAZOLE 40 MG TABLET.DR PO SCH (08:36)
[2022-06-30] MEDS: ASPIRIN 81 MG TAB.CHEW PO SCH (08:37)
[2022-06-30] MEDS: APIXABAN 5 MG TABLET PO SCH ×2 (08:37→17:08)
[2022-06-30] MEDS: LISINOPRIL (5MG) 5 MG TABLET PO SCH (08:37)
[2022-06-30 16:00] VITALS: BP 112/62
[2022-06-30] MEDS: ATORVASTATIN 10 MG TABLET PO SCH (17:07)
--- NOTE | 2022-06-30 18:48 | NUR ---
RN CLOSING NOTES PATIENT IN BED AWAKE, A/O X4, VERBALLY RESPONSIVE. NO SIGNS OF ACUTE DISTRESS NOTED. FAMILY AT BEDSIDE. REMAINS STABLE ON ROOM AIR, NO SOB NOTED, BREATHING EVEN AND UNLABORED. NO C/O PAIN AT THIS TIME. NO IV ACCESS. ALL DUE MEDS GIVEN, TOLERATED WELL. ASSISTED TO BATHROOM NEEDED, ABLE TO AMBULATE WITH FWW, STANDBY ASSIST. SAFETY MEASURE MAINTAINED. BED IN LOWEST AND LOCKED POSITION, SIDE RAILS UP X2, CALL LIGHT PLACED WITHIN EASY REACH WILL ENDORSE TO NEXT SHIFT FOR CONTINUITY OF CARE.
--- NOTE | 2022-06-30 19:45 | NUR ---
MS RN NOTES RECEIVED SITTING ON BEDSIDE CHAIR,WITH VISITOR AROUND SINGING WITH HER,APPEARS HAPPY,NO IV ACCESS,PATIENT REFUSED.AMBULATE WITH WALKER,SPEAK FINNISH MOSTLY,ABLE TO SPEAK TAMAZIGHT.CALL LIGHT IN REACH,NEEDS ANTICIPATED.
[2022-06-30 20:00] VITALS: BP 119/66
--- NOTE | 2022-07-01 06:44 | NUR ---
MS RN NOTES FAIRLY RESTED AT NIGHT,DENIES ANY DISCOMFORTS.AMBULATE TWICE TO THE BATHROOM WITH WALKER,IN NO ACUTE DISTRESS STILL WAITING FOR PLACEMENT.
--- NOTE | 2022-07-01 07:29 | NUR ---
MS RN OPENING NOTE RECEIVED PT AWAKE, RESTING IN BED. PT IS A/O X4, ABLE TO MAKE NEEDS KNOWN. ON RA, TOLERATING WELL. NO SOB NOTED. NOT IN ANY SIGN OF RESPIRATORY DISTRESS. PT HAS NO IV ACCESS. SAFETY MEASURES IN PLACE: BED IN LOWEST AND LOCKED POSITION, SIDE RAILS UPX2, AND CALL LIGHT WITHIN REACH. WILL CONTINUE TO MONITOR PT.
[2022-07-01 08:00] VITALS: BP 122/65
[2022-07-01] MEDS: PANTOPRAZOLE 40 MG TABLET.DR PO SCH (08:04)
[2022-07-01] MEDS: LISINOPRIL (5MG) 5 MG TABLET PO SCH (09:09)
[2022-07-01] MEDS: ASPIRIN 81 MG TAB.CHEW PO SCH (09:10)
[2022-07-01] MEDS: APIXABAN 5 MG TABLET PO SCH ×2 (09:10→17:46)
[2022-07-01 16:00] VITALS: BP 148/80
[2022-07-01] MEDS: ATORVASTATIN 10 MG TABLET PO SCH (18:00)
--- NOTE | 2022-07-01 19:30 | NUR ---
RN OPENING NOTES RECEIVED PT IN CHAIR, SITTING UPRIGHT, WATCHING TV. AOx4, ABLE TO MAKE NEEDS KNOWN. ON RA AND TOLERATING WELL. NO SOB NOTED. NO S/SX OF RESPIRATORY DISTRESS NOTED. NO IV ACCESS PRESENT. SAFETY PRECAUTIONS IN PLACE: BED IN LOWEST, LOCKED POSITION, SIDERAILS UPx2, AND BRAKES ON. TABLE AND CALL LIGHT WITHIN REACH. ALL NEEDS MET AT THIS TIME.
[2022-07-01 20:00] VITALS: BP 134/64
--- NOTE | 2022-07-01 20:06 | NUR ---
MS RN CLOSING NOTE PT AWAKE, RESTING IN BED. PT IS A/O X4, ABLE TO MAKE NEEDS KNOWN. ON RA, TOLERATING WELL. NO SOB NOTED. NOT IN ANY SIGN OF RESPIRATORY DISTRESS. PT HAS NO IV ACCESS. ALL NEEDS ATTENDED. KEPT CLEAN AND COMFORTABLE. SAFETY MEASURES IN PLACE: BED IN LOWEST AND LOCKED POSITION, SIDE RAILS UPX2, AND CALL LIGHT WITHIN REACH. ENDORSED TO CLEANING MATRON NURSE FOR MODESTO.
--- NOTE | 2022-07-02 07:02 | NUR ---
RN CLOSING NOTES PT IN BED, ASLEEP, AWAKENS TO VERBAL STIMULI. AOx4, ABLE TO MAKE NEEDS KNOWN. ON RA AND TOLERATING WELL. NO SOB NOTED. NO S/SX OF RESPIRATORY DISTRESS NOTED. NO IV ACCESS PRESENT. ALL ORDERS CARRIED OUT. ALL NEEDS MET. PT KEPT CLEAN AND DRY. SAFETY PRECAUTIONS IN PLACE: BED IN LOWEST, LOCKED POSITION, SIDERAILS UPx2, AND BRAKES ON. TABLE AND CALL LIGHT WITHIN REACH. WILL ENDORSE TO ONCOMING SHIFT FOR [place].
--- NOTE | 2022-07-02 07:18 | NUR ---
MS RN OPENING NOTES RECEIVED PT IN BED, ASLEEP, PATIENT IS AOx4, ABLE TO MAKE NEEDS KNOWN. ON RA, WITH EQUAL AND UNLABORED BREATHING, TOLERATING WELL WITH NO SIGNS AND SYMPTOMS OF DISTRESS. PATIENT DOES NOT HAVE ANY IV ACCESS PRESENT, MD AWARE. SAFETY PRECAUTIONS IN PLACE: BED IN LOWEST, LOCKED POSITION, SIDERAILS UPx2, AND BRAKES ON. TABLE AND CALL LIGHT WITHIN REACH. WILL CONTINUE TO MONITOR PATIENT.
[2022-07-02] MEDS: ASPIRIN 81 MG TAB.CHEW PO SCH (08:51)
[2022-07-02] MEDS: PANTOPRAZOLE 40 MG TABLET.DR PO SCH (08:51)
[2022-07-02] MEDS: LISINOPRIL (5MG) 5 MG TABLET PO SCH (08:52)
[2022-07-02] MEDS: APIXABAN 5 MG TABLET PO SCH ×2 (09:01→17:07)
[2022-07-02] MEDS: ATORVASTATIN 10 MG TABLET PO SCH (17:06)
--- NOTE | 2022-07-02 19:18 | NUR ---
MS RN CLOSING NOTES PT IN BED, PATIENT IS AOx4, ABLE TO MAKE NEEDS KNOWN. ON RA, WITH EQUAL AND UNLABORED BREATHING, TOLERATING WELL WITH NO SIGNS AND SYMPTOMS OF DISTRESS. PATIENT DOES NOT HAVE ANY IV ACCESS PRESENT, MD AWARE. SAFETY PRECAUTIONS IN PLACE: BED IN LOWEST, LOCKED POSITION, SIDERAILS UPx2, AND BRAKES ON. TABLE AND CALL LIGHT WITHIN REACH. WILL CONTINUE TO MONITOR PATIENT. STILL WAITING FOR PLACEMENT CARE OF SOLAR PROJECT MANAGER. WILL ENDORSE PATIENT TO NEXT SHIFT FOR CONTINUITY OF CARE.
--- NOTE | 2022-07-02 19:45 | NUR ---
MS RN NOTES RECEIVED ON BED SLEEPING AROUSABLE TO VERBAL STIMULI,NO SOB,ABLE TO WALK WITH WALKER,ASSIST WITH ADL'S,NO IV ACCESS,PATIENT REFUSED.CALL LIGHT IN REACH,NEEDS ANTICIPATED.
[2022-07-02 20:00] VITALS: BP 115/73
--- NOTE | 2022-07-03 06:27 | NUR ---
MS RN NOTES NO SIGNIFICANT CHANGE IN STATUS.SLEEP WELL AT NIGHT,CALL LIGHT IN REACH,NEEDS ATTENDED,STILL WAITING FOR PLACEMENT,AWAITING INSURANCE APPROVAL.
--- NOTE | 2022-07-03 07:45 | NUR ---
ms rn received on bed, awake,alert,oriented x4,not in any form of distress, respirations even and unlabored,no sob noted, lungs are clear,abdomen soft, positive bowel sounds,denies pain at this time, patient uses walker to the bathroom, denies pain at this time,all needs attended.
[2022-07-03 08:00] VITALS: BP 129/66
[2022-07-03] MEDS: PANTOPRAZOLE 40 MG TABLET.DR PO SCH (08:30)
[2022-07-03] MEDS: ASPIRIN 81 MG TAB.CHEW PO SCH (08:30)
[2022-07-03] MEDS: APIXABAN 5 MG TABLET PO SCH ×2 (08:38→17:11)
[2022-07-03] MEDS: LISINOPRIL (5MG) 5 MG TABLET PO SCH (08:39)
--- NOTE | 2022-07-03 09:20 | NUR ---
ms mark breakfast served,due meds given,tolerated well.
[2022-07-03 16:00] VITALS: BP 108/62
[2022-07-03] MEDS: ATORVASTATIN 10 MG TABLET PO SCH (17:11)
--- NOTE | 2022-07-03 17:51 | NUR ---
ms rn on bed, no distress noted,all needs attended.
--- NOTE | 2022-07-03 19:30 | NUR ---
RN OPENING NOTE PATIENT IN BED, AWAKE. PATIENT IS ON RA, TOLERATING WELL, BREATHING EVEN AND UNLABORED. PATIENT'S WALKER AT BEDSIDE. PATIENT DOES NOT REPORT ANY PAIN AT THIS TIME. PATIENT NOTED TO HAVE NO IV ACCESS. SAFETY MEASURES IN PLACE: BED LOCKED AND IN LOWEST POSITION, CALL LIGHT WITHIN REACH, SIDE RAILS UP. WILL MONITOR PATIENT CLOSELY.
[2022-07-03 20:00] VITALS: BP 131/68
--- NOTE | 2022-07-04 06:49 | NUR ---
RN CLOSING NOTE PATIENT IN BED, EYES CLOSED. EASILY AWAKENED. PATIENT IS ON RA, TOLERATING WELL, BREATHING EVEN AND UNLABORED. PATIENT'S WALKER AT BEDSIDE, WALKED TO THE BATHROOM X 2. PATIENT DOES NOT REPORT ANY PAIN AT THIS TIME. PATIENT NOTED TO HAVE NO IV ACCESS. SAFETY MEASURES IN PLACE: BED LOCKED AND IN LOWEST POSITION, CALL LIGHT WITHIN REACH, SIDE RAILS UP. ALL NEEDS MET AND ATTENDED. ALL ORDERS CARRIED OUT. WILL ENDORSE TO DAY SHIFT NURSE FOR [place].
--- NOTE | 2022-07-04 07:29 | NUR ---
MS RN OPENING NOTES: PT RECEIVED AWAKE, RESTING IN BED COMFORTABLY, A/OX4. ABLE TO MAKE NEEDS KNOWN. PT ON RA WITH NO S/S OF SOB AND ACUTE DISTRESS. NO IV ACCESS NOTED. ENDORSED BY PM RN, PT REFUSED IV PLACEMENT AT ER AND ON THE UNIT, PT UNDERSTANDS RATIONAL OF IV ACCESS BUT DECLINED ANYWAY. MADE PT COMFORTABLE, CLEAN AND DRY, SAFETY MEASURES IN PLACE, CALL LIGHT AND TABLE WITHIN REACH; WILL CONTINUE PLAN OF CARE THROUGHOUT SHIFT.
[2022-07-04 08:00] VITALS: BP 104/65
[2022-07-04] MEDS: PANTOPRAZOLE 40 MG TABLET.DR PO SCH (08:19)
[2022-07-04] MEDS: ASPIRIN 81 MG TAB.CHEW PO SCH (08:19)
[2022-07-04] MEDS: APIXABAN 5 MG TABLET PO SCH ×2 (08:21→16:56)
[2022-07-04] MEDS: LISINOPRIL (5MG) 5 MG TABLET PO SCH (08:22)
[2022-07-04 16:00] VITALS: BP 128/79
[2022-07-04] MEDS: ATORVASTATIN 10 MG TABLET PO SCH (17:00)
--- NOTE | 2022-07-04 18:37 | NUR ---
MS RN CLOSING NOTES: PT AWAKE, RESTING IN BED COMFORTABLY, A/OX4. ABLE TO MAKE NEEDS KNOWN. PT ON RA WITH NO S/S OF SOB AND ACUTE DISTRESS. PT DENIES PAIN AT THIS TIME. NO IV ACCESS NOTED, PT REFUSES IV INSERTION . PT UNDERSTANDS RATIONAL OF IV ACCESS BUT DECLINED ANYWAY. PT AMBULATES WITH WALKER AND STAND BY ASSIST. OBSERVED WALKING AROUND THE UNIT USING WALKER WITH DAUGHTER @ 1815. PT IS COMFORTABLE, CLEAN AND DRY, SAFETY MEASURES IN PLACE, CALL LIGHT AND TABLE WITHIN REACH; WILL ENDORSE TO PM SHIFT.
--- NOTE | 2022-07-04 19:37 | NUR ---
noc rn opening received patient in bed sitting. a/ox4. no s/s of apparent distress in room air. no c/o pain at this time. patient has no iv access. oriented with the use of call light. safety in place. will continue with the plan of care for patient.
[2022-07-04 20:59] VITALS: BP 118/71
--- NOTE | 2022-07-05 07:20 | NUR ---
MS RN OPENING NOTES: RECEIVED PT IN BED AWAKE, ALERT AND ORIENTED X 4 AND ABLE TO VERBALIZED NEEDS. NO SOB OR CARDIAC DISTRESS NOTED. DENIES ANY PAIN AND DISCOMFORT AT THIS TIME. SAFETY PRECAUTIONS MAINTAINED: BED LOCKED AND IN LOWEST POSITION SIDE RAILS UP X 2 CALL LIGHT IN EASY REACH FOR HELP. WILL MONITOR PT ACCORDINGLY.
[2022-07-05] MEDS: PANTOPRAZOLE 40 MG TABLET.DR PO SCH (07:42)
[2022-07-05 08:07] VITALS: BP 113/66
[2022-07-05] MEDS: ASPIRIN 81 MG TAB.CHEW PO SCH (08:49)
[2022-07-05] MEDS: LISINOPRIL (5MG) 5 MG TABLET PO SCH ×2 (08:50→09:00)
[2022-07-05] MEDS: APIXABAN 5 MG TABLET PO SCH ×2 (08:53→17:23)
[2022-07-05 16:00] VITALS: BP 128/88
[2022-07-05] MEDS: ATORVASTATIN 10 MG TABLET PO SCH (17:22)
--- NOTE | 2022-07-05 18:36 | NUR ---
MS RN CLOSING NOTES: PT IN BED AWAKE, ALERT AND ORIENTED X 4 AND ABLE TO VERBALIZED NEEDS. NO SOB OR CARDIAC DISTRESS NOTED. DENIES ANY PAIN AND DISCOMFORT AT THIS TIME. SAFETY PRECAUTIONS MAINTAINED: BED LOCKED AND IN LOWEST POSITION SIDE RAILS UP X 2 CALL LIGHT IN EASY REACH FOR HELP. WILL MONITOR PT ACCORDINGLY. WILL ENDORSED TO NOC SHIFT FOR [place].
--- NOTE | 2022-07-05 19:30 | NUR ---
noc rn note patient very upset when I came in, verbalizing want to go home. per patient her daughter will pick her up. discharge order active. will print out discharge forms.
--- NOTE | 2022-07-05 22:32 | NUR ---
[facility] PP CONSULTANT NOTE patient's daughter Soni came in unit at around 1999. daughter signed discharge forms. belongings accounted for-- patient only has her wrist watch. Id band discarded. patient had no IV lines. prescription and discharge folder given to daughter. patient in stable condition. refused skin assessment and vital signs. left in private transportation.
== END 2022-07-05 20:50 | disposition home health service (06) | DRG 535 ==
LOC: ER 20:01 → TRANSITION 06-20 02:26 → MED 06-20 02:32
PROVIDERS: ADMIT Nurse Practitioner Family; ATTEND Internal Medicine
DX: S32.810A Multiple fractures of pelvis with stable disruption of pelvic ring, initial encounter for closed fracture (principal); N17.0 Acute kidney failure with tubular necrosis; N39.0 Urinary tract infection, site not specified; X58.XXXA Exposure to other specified factors, initial encounter; Y92.9 Unspecified place or not applicable; Z20.822 Contact with and (suspected) exposure to COVID-19; B96.20 Unspecified Escherichia coli [E. coli] as the cause of diseases classified elsewhere; I10 Essential (primary) hypertension; E78.5 Hyperlipidemia, unspecified; Z96.643 Presence of artificial hip joint, bilateral; M19.90 Unspecified osteoarthritis, unspecified site; R73.9 Hyperglycemia, unspecified; Z87.440 Personal history of urinary (tract) infections; E66.9 Obesity, unspecified; Z68.30 Body mass index [BMI] 30.0-30.9, adult
CPT/HCPCS: 36415; 80048-TC; 85025-TC; 87081-TC; 97116-TC; 97530-TC; 97535-TC; G0378

== ENCOUNTER 2023-12-25 07:25 | Emergency (ER) | payer BC ==
[~2023-12-25] VITALS: Ht 167.6 cm; Wt 70.8 kg
[~2023-12-25 07:25] MED LIST changes: +TRAM50TA2 PO
[2023-12-25] MEDS ORDERED: MAG HYDROX/AL HYDROX/SIMETH 30 ML UDC ONE (07:54)
[2023-12-25] MEDS ORDERED: PANTOPRAZOLE 40 MG TABLET.DR PO ONE (07:59)
[2023-12-25] MEDS ORDERED: OMEPRAZOLE 20 MG CAPSULE.DR PO ONE (08:00)
[2023-12-25] MEDS: MAG HYDROX/AL HYDROX/SIMETH 30 ML UDC PO ONE (08:03)
[2023-12-25] MEDS: PANTOPRAZOLE 40 MG TABLET.DR PO ONE (08:04)
[2023-12-25 08:32] LABS: CREATININE 0.7 mg/dL (0.6-1.3); POTASSIUM 3.6 mmol/L (3.5-5.1)
[2023-12-25 08:40] LABS: APPEARANCE,URINE CLEAR (CLEAR); BILIRUBIN,URINE NEGATIVE (NEGATIVE); BLOOD, URINE 1+ Ery/uL (NEGATIVE); COLOR,URINE YELLOW (YELLOW); KETONES,URINE TRACE mg/dL (NEGATIVE); LEUKOCYTE ESTERASE ,URINE NEGATIVE (NEGATIVE); NITRITE, URINE POSITIVE (NEGATIVE); PH,URINE 6.5 (5.0-8.0); PROTEIN,URINE 2+ mg/dl (NEGATIVE); UGLUCOSE NEGATIVE (NEGATIVE); UROBILINOGEN,URINE 0.2 EU/dL (0.2)
[2023-12-25 08:42] LABS: ADD URINE CULTURE YES; BACTERIA,URINE Few /HPF (None Seen); RBC,URINE 0-2 /HPF (0-2); SQUAMOUS EPITHELIAL CELL,UR Rare /HPF (None Seen)
[2023-12-25 08:43] LABS: BASOPHILS % (AUTO) 0.1 % (0.0-2.0); EOSINOPHILS % (AUTO) 0.1 % (0.0-6.0); HEMATOCRIT 44 % (33-45); HEMOGLOBIN 14.7 g/dL (11.5-14.8); LYMPHOCYTES # (AUTO) 1.2 K/uL (0.8-4.8); LYMPHOCYTES % (AUTO) 12.4 % (20.0-44.0); MEAN CORPUSCULAR HEMOGLOBIN 28 PG (26.0-33.0); MEAN CORPUSCULAR HGB CONC 34 g/dl (31.0-36.0); MEAN CORPUSCULAR VOLUME 84 fL (82-100); MONOCYTES # (AUTO) 0.6 K/uL (0.1-1.30); NEUTROPHILS # (AUTO) 7.4 K/uL (1.8-8.9); NEUTROPHILS % (AUTO) 80.4 % (43.0-81.0); PLATELET COUNT (AUTO) 227 K/uL (150-450); RED BLOOD CELL COUNT(AUTO) 5.21 MIL/uL (4.0-5.2); RED CELL DISTRIBUTION WIDTH 14.7 % (11.5-15.0); WHITE BLOOD COUNT (AUTO) 9.3 K/uL (4.3-11.0)
[2023-12-25 08:46] LABS: ALBUMIN 3.8 g/dL (3.4-5.0); BILIRUBIN,DIRECT 0.3 mg/dL (0.0-0.2); BILIRUBIN,TOTAL 1.3 mg/dL (0.2-1.0)
[2023-12-25 09:03] VITALS: BP 138/86; TEMP 98.4; O2SAT 98
== END 2023-12-25 09:04 | disposition home or self-care (01) ==
LOC: ER 07:33
DX: R10.13 Epigastric pain (principal); I10 Essential (primary) hypertension; Z79.899 Other long term (current) drug therapy
CPT/HCPCS: 36415; 80048-TC; 80076-TC; 81001; 83690-TC; 85025-TC; 87086-TC